=== PATIENT | male | born 1960 | race American Indian/Alaskan Native ===

== ENCOUNTER 2021-12-26 07:49 | Outpatient (CLI) | payer BC ==
--- NOTE | 2021-12-26 09:22 | Ultrasound Report ---
ULTRASOUND ABDOMEN, COMPLETE INDICATION / CLINICAL INFORMATION: R10.9 ABDOMINAL PAIN. COMPARISON: None available. FINDINGS: PANCREAS: No significant abnormality. ABDOMINAL AORTA: No significant abnormality. IVC: No significant abnormality. LIVER: Multiple liver cysts incidentally noted. GALLBLADDER: No significant abnormality. BILE DUCTS: No significant abnormality. Common bile duct not well seen. KIDNEYS: Right: No significant abnormality. Left: No significant abnormality. SPLEEN: No significant abnormality. FREE FLUID: None. ADDITIONAL FINDINGS: None. IMPRESSION: Multiple liver cysts measuring up to 2.2 cm. No other acute findings. Signer Name: Renny Blue MD Signed: 12/26/2021 9:18 AM Workstation Name: [email or web address]
== END 2021-12-26 07:50 | disposition home or self-care (01) ==
LOC: US 07:49
PROVIDERS: ATTEND Internal Medicine
DX: K76.89 Other specified diseases of liver (principal)
CPT/HCPCS: 76700